=== PATIENT | female | born 1985 | race Caucasian/White ===

== ENCOUNTER 2019-06-16 16:16 | Emergency (ER) | payer OTHER ==
--- NOTE | 2019-06-16 16:53 | ED Physician Documentation ---
History of Present Illness - Stated complaint Stated Complaint: R SIDED CHEST WALL PX - Chief complaint Chief Complaint: Abd Pain - History obtained from History obtained from: Patient - History of Present Illness Timing: Yesterday Pain level max: 7 Pain level now: 5 - Additonal information Additional information: epigastric/RUQ abd pain. States history of gastric bypass in 09/16. [facility]. No vomiting. worse with movement. Nothing makes it better. Has chronic constipation. no diarrhea. no vomiting. Review of Systems Constitutional: denies: Fever, Chills Cardiac: denies: Chest pain / pressure Respiratory: denies: Cough GI: denies: Vomiting, Diarrhea, Hematemesis, Bloody / black stool Skin: denies: Rash Musculoskeletal: denies: Neck pain, Back pain Neurologic: denies: Headache PD PAST MEDICAL HISTORY - Past Medical History Past Medical History: Yes Psych: Depression, Anxiety - Past Surgical History Past Surgical History: Yes General: Gastric surgery - Present Medications Home Medications: Ambulatory Orders Medication Instructions Recorded Confirmed Esomeprazole Magnesium [Nexium] 40 mg PO DAILY #30 capsule. 06/16/19 - Allergies Allergies/Adverse Reactions: Allergies Allergy/AdvReac Type Severity Reaction Status Date / Time Sulfa (Sulfonamide Allergy Anaphylaxis Verified 06/16/19 16:25 Antibiotics) Penicillins AdvReac Anaphylaxis Verified 06/16/19 16:25 PD ED PE NORMAL - Vitals Vital signs reviewed: Yes - General General: Alert and oriented X 3, No acute distress - HEENT HEENT: Moist mucous membranes - Neck Neck: Supple, no meningeal sign - Cardiac Cardiac: RRR, Strong equal pulses - Respiratory Respiratory: No respiratory distress, Clear bilaterally - Abdomen Abdomen: Soft, Other (Mild tender to palpation epigastric and right upper quadrant. Negative Hernandez sign.) - Back Back: No CVA TTP, No spinal TTP - Derm Derm: Warm and dry, No rash - Extremities Extremities: No edema - Neuro Neuro: Alert and oriented X 3 Results - Vitals Vitals: Vital Signs - 24 hr 06/16/19 06/16/19 16:20 20:13 Temperature 36.8 C Heart Rate 76 61 Respiratory 18 16 Rate Blood Pressure 125/80 127/73 O2 Saturation 98 99 Oxygen O2 Source Room air - EKG (time done) 1641 Rate: Rate (enter#) (64) Rhythm: NSR [place]: Normal Intervals: Normal ID QRS: Normal Ischemia: Normal ST segments - Labs Labs: Laboratory Tests 06/16/19 06/16/19 06/16/19 16:54 16:54 16:54 WBC 8.7 RBC 4.63 Hgb 13.8 Hct 42.0 MCV 90.7 MCH 29.8 MCHC 32.9 RDW 14.4 Plt Count 244 MPV 10.2 Neut # (Auto) 5.4 Lymph # (Auto) 2.7 [place] # (Auto) 0.5 Eos # (Auto) 0.1 Baso # (Auto) 0.0 Absolute Nucleated RBC 0.00 Nucleated RBC % 0.0 Sodium 140 Potassium 3.4 L Chloride 102 Carbon Dioxide 25 Anion Gap 13.0 BUN 16 Creatinine 0.7 Estimated GFR (MDRD) 96 Glucose 80 Calcium 9.5 Total Bilirubin 0.9 AST 21 ALT 25 Alkaline Phosphatase 65 Troponin I < 0.04 Total Protein 7.7 Albumin 4.8 Globulin 2.9 Albumin/Globulin Ratio 1.7 Lipase 30 - Rads (name of study) RUQ US Radiology: Prelim report reviewed, EMP read contemporaneously, See rad report (Dilated common bile duct and gallbladder. Possible distal common bile duct obstruction or sphincter dysfunction. 2. No gallstones or ultrasound findings of acute cholecystitis. ) PD MEDICAL DECISION MAKING - ED course Complexity details: reviewed results, re-evaluated patient, considered differential, d/w patient ED course: 34-year-old female with epigastric pain of unclear etiology. Ultrasound shows a dilated common bile duct and gallbladder. Possible distal common bile duct obstruction or sphincter dysfunction. No acute laboratory abnormalities. No cholecystitis. We were going to perform a CT scan for possible internal hernia or other etiology of her pain. Patient changed her mind and would like to go home at this time. She states that she feels better. The GI cocktail helped somewhat. We will trial her on a PPI and see how she progresses. Tolerating p.o. without difficulty. Afebrile. Patient counseled regarding signs and symptoms for which I believe and urgent re-evaluation would be necessary. Patient with good understanding of and agreement to plan and is comfortable going home at this time This document was made in part using voice recognition software. While efforts are made to proofread this document, sound alike and grammatical errors may occur. Departure - Departure Disposition: 01 Home, Self Care Clinical Impression: Abdominal pain Qualifiers: Abdominal location: epigastric Qualified Code(s): R10.13 - Epigastric pain Condition: Stable Instructions: ED Abdominal Pain Unkn Cause Follow-Up: your,doctor in 3 days [Other] Prescriptions: Esomeprazole Magnesium [Nexium] 40 mg PO DAILY #30 capsule. Comments: The cause of your symptoms is unclear today. Follow-up with your doctor for further care. You do have a dilated common bile duct, this could be due to a stone, or sphincter dysfunction. Your laboratory tests are normal today. We did discuss a CT scan but you have declined this at this time. Return if you change your mind or if your symptoms worsen. Discharge Date/Time: 06/16/19 20:14
[2019-06-16 16:58] LABS: BASOPHILS % (AUTO) 0.5 %; EOSINOPHILS # (AUTO) 0.1 10^3/uL (0.0-0.7); EOSINOPHILS % (AUTO) 0.7 %; HGB - HEMOGLOBIN 13.8 g/dL (12.0-16.0); LYMPHOCYTES # (AUTO) 2.7 10^3/uL (1.5-3.5); LYMPHOCYTES % (AUTO) 30.5 %; MEAN CORPUSCULAR HEMOGLOBIN 29.8 pg (27.0-31.0); MEAN CORPUSCULAR HGB CONC 32.9 g/dL (32.0-36.0); MEAN CORPUSCULAR VOLUME 90.7 fL (81.0-99.0); MEAN PLATELET VOLUME 10.2 fL (7.9-10.8); MONOCYTES # (AUTO) 0.5 10^3/uL (0.0-1.0); NEUTROPHILS # (AUTO) 5.4 10^3/uL (1.5-6.6); PLT - PLATELET COUNT 244 10^3/uL (130-450); RED BLOOD COUNT 4.63 10^6/uL (4.20-5.40); RED CELL DISTRIBUTION WIDTH 14.4 % (12.0-15.0); WHITE BLOOD COUNT 8.7 x10^3/uL (4.8-10.8)
[2019-06-16 17:14] LABS: ALBUMIN 4.8 g/dL (3.2-5.5); ALBUMIN/GLOBULIN RATIO 1.7 (1.0-2.2); BILIRUBIN,TOTAL 0.9 mg/dL (0.2-1.0); CALCIUM 9.5 mg/dL (8.5-10.3); CREATININE 0.7 mg/dL (0.4-1.0); TOTAL PROTEIN 7.7 g/dL (6.7-8.2)
[2019-06-16] MEDS ORDERED: MAG HYDROX/AL HYDROX/SIMETH 30 ML UDC PO STA (17:20)
[2019-06-16] MEDS ORDERED: FAMOTIDINE 20 MG TABLET PO STA (17:20)
[2019-06-16] MEDS ORDERED: SUCRALFATE 1 GM/10 ML UDC PO STA (17:20)
[2019-06-16] MEDS ORDERED: LIDOCAINE VISCOUS 2% 15 ML UDC MM STA (17:20)
--- NOTE | 2019-06-16 17:34 | XRAY Report ---
Reason: chest pain Procedure Date: 06/16/2019 Accession Number: [id number] / [id number] Procedure: XR - Chest 1 View X-Ray CPT Code: 28125 FULL RESULT: EXAM: CHEST RADIOGRAPHY EXAM DATE: 06/16/2019 05:18 PM. CLINICAL HISTORY: Chest pain. COMPARISON: None. TECHNIQUE: 1 view. FINDINGS: Lungs/Pleura: No focal opacities evident. No pleural effusion. No pneumothorax. Mediastinum: Within exam limitations, the cardiomediastinal contour is normal. Other: Multiple surgical clips at level of GE junction in the upper abdomen. IMPRESSION: 1. Normal single view chest. 2. Postoperative changes in the region of cardia of stomach/hiatus. RADIA
--- NOTE | 2019-06-16 18:30 | Ultrasound Report ---
Reason: RUQ abd pain Procedure Date: 06/16/2019 Accession Number: [id number] / [id number] Procedure: US - Abdomen Limited CPT Code: FULL RESULT: EXAM: ABDOMEN ULTRASOUND LIMITED, RUQ EXAM DATE: 06/16/2019 06:07 PM. CLINICAL HISTORY: RUQ abd pain. COMPARISON: None. TECHNIQUE: Real-time scanning was performed with static images obtained. FINDINGS: Liver: Visualization of liver and other solid organs limited by body habitus. No focal mass identified in the liver on ultrasound. 17.2 cm. Main portal vein flow: Hepatopetal. Gallbladder: Gallbladder is distended. No stones. Gallbladder wall thickness is normal. Negative ultrasound Hernandez sign. Biliary System: CBD measures 6.8 mm. Common hepatic duct measures 3 mm in diameter Other: Right kidney measures 11.6 cm in length without hydronephrosis. There are calcifications in the upper pole of the right kidney. No right upper quadrant free fluid. IMPRESSION: 1. Dilated common bile duct and gallbladder. Possible distal common bile duct obstruction or sphincter dysfunction. 2. No gallstones or ultrasound findings of acute cholecystitis. RADIA
[2019-06-16] MEDS ORDERED: IOVERSOL 320 100 ML VIAL IVP ONE (19:54)
[2019-06-16 20:14] VITALS: BP 127/73
== END 2019-06-16 20:14 | disposition home or self-care (01) ==
LOC: ED 16:16
DX: R10.13 Epigastric pain (principal)
CPT/HCPCS: 36415; 71045; 76705; 80053; 83690; 84484; 85025; 93005; 99284; A9270

== ENCOUNTER 2019-10-20 14:27 | Emergency (ER) | payer OTHER ==
[2019-10-20 15:40] LABS: BASOPHILS % (AUTO) 0.2 %; EOSINOPHILS % (AUTO) 0.2 %; HGB - HEMOGLOBIN 15.1 g/dL (12.0-16.0); LYMPHOCYTES # (AUTO) 0.3 10^3/uL (1.5-3.5); MEAN CORPUSCULAR HEMOGLOBIN 30.2 pg (27.0-31.0); MEAN CORPUSCULAR HGB CONC 32.2 g/dL (32.0-36.0); MEAN CORPUSCULAR VOLUME 93.8 fL (81.0-99.0); MEAN PLATELET VOLUME 9.8 fL (7.9-10.8); MONOCYTES # (AUTO) 0.4 10^3/uL (0.0-1.0); MONOCYTES % (AUTO) 2.9 %; NEUTROPHILS # (AUTO) 11.6 10^3/uL (1.5-6.6); NEUTROPHILS % (AUTO) 94.3 %; PLT - PLATELET COUNT 240 10^3/uL (130-450); RED CELL DISTRIBUTION WIDTH 14.9 % (12.0-15.0); WHITE BLOOD COUNT 12.3 x10^3/uL (4.8-10.8)
[2019-10-20] MEDS ORDERED: ONDANSETRON ODT 4 MG TABLET TL STA (15:43)
[2019-10-20 15:54] LABS: ALBUMIN 4.8 g/dL (3.2-5.5); ALBUMIN/GLOBULIN RATIO 1.7 (1.0-2.2); BILIRUBIN,TOTAL 1.1 mg/dL (0.2-1.0); CREATININE 0.7 mg/dL (0.4-1.0); TOTAL PROTEIN 7.7 g/dL (6.7-8.2)
--- NOTE | 2019-10-20 16:14 | ED Physician Documentation ---
PD HPI ABD PAIN - Stated complaint Stated Complaint: ABD/CHEST PAIN, DRY HEAVING - GASTRIC BYPASS PT - Chief complaint Chief Complaint: Abd Pain - History obtained from History obtained from: Patient - History of Present Illness Timing - onset: Today Timing - duration: Hours Timing - details: Abrupt onset, Still present Quality: Cramping, Aching, Pain Location: Epigastric Improved by: No: Vomiting Worsened by: Eating. No: Moving, Breathing Associated symptoms: Nausea, Vomiting, Diarrhea. No: Near syncope / syncope Similar symptoms before: Has not had sx before Review of Systems Constitutional: reports: Myalgias. denies: Fever, Chills Nose: denies: Rhinorrhea / runny nose, Congestion Throat: denies: Sore throat Respiratory: denies: Cough GI: reports: Abdominal Pain (onset after vomiting), Nausea, Vomiting, Diarrhea Neurologic: reports: Generalized weakness. denies: Near syncope PD PAST MEDICAL HISTORY - Past Medical History Cardiovascular: None Respiratory: None Neuro: None GI: None Psych: Depression, Anxiety - Past Surgical History Past Surgical History: Yes General: Cholecystectomy, Gastric surgery - Present Medications Home Medications: Ambulatory Orders Medication Instructions Recorded Confirmed Esomeprazole Magnesium [Nexium] 40 mg PO DAILY #30 capsule. 06/16/19 Diphenoxylate/Atropine [Lomotil] 1 each PO QID PRN #12 tablet 10/20/19 Ondansetron Odt [Zofran] 4 mg TL Q6H PRN #10 tablet 10/20/19 Tramadol HCl 50 mg PO Q6H PRN #10 tablet 10/20/19 - Allergies Allergies/Adverse Reactions: Allergies Allergy/AdvReac Type Severity Reaction Status Date / Time Sulfa (Sulfonamide Allergy Anaphylaxis Verified 10/20/19 14:37 Antibiotics) Penicillins AdvReac Anaphylaxis Verified 10/20/19 14:37 PD ED PE NORMAL - Vitals Vital signs reviewed: Yes - General General: Alert and oriented X 3, No acute distress, Well developed/nourished - HEENT HEENT: Pharynx benign. No: Moist mucous membranes - Neck Neck: Supple, no meningeal sign, No adenopathy - Cardiac Cardiac: RRR, No murmur - Respiratory Respiratory: Clear bilaterally - Abdomen Abdomen: Normal bowel sounds, Soft, Non distended, No organomegaly, Other (mid tender without guarding epigastric area. No distension. ) - Back Back: No CVA TTP - Derm Derm: Normal color, Warm and dry - Extremities Extremities: No tenderness to palpate, Normal ROM s pain, No edema, No calf tenderness / cord - Neuro Neuro: Alert and oriented X 3, No motor deficit, Normal speech Results - Vitals Vitals: Vital Signs - 24 hr 10/20/19 10/20/19 14:37 19:05 Temperature 36.5 C Heart Rate 85 72 Respiratory 16 16 Rate Blood Pressure 114/69 107/66 O2 Saturation 100 Oxygen O2 Source Room air - Labs Labs: Laboratory Tests 10/20/19 10/20/19 15:37 15:37 WBC 12.3 H RBC 5.00 Hgb 15.1 Hct 46.9 MCV 93.8 MCH 30.2 MCHC 32.2 RDW 14.9 Plt Count 240 MPV 9.8 Neut # (Auto) 11.6 H Lymph # (Auto) 0.3 L [place] # (Auto) 0.4 Eos # (Auto) 0.0 Baso # (Auto) 0.0 Absolute Nucleated RBC 0.00 Nucleated RBC % 0.0 Sodium 139 Potassium 3.4 L Chloride 103 Carbon Dioxide 26 Anion Gap 10.0 BUN 14 Creatinine 0.7 Estimated GFR (MDRD) 96 Glucose 113 H Calcium 9.0 Total Bilirubin 1.1 H AST 24 ALT 32 Alkaline Phosphatase 61 Total Protein 7.7 Albumin 4.8 Globulin 2.9 Albumin/Globulin Ratio 1.7 Lipase 31 PD MEDICAL DECISION MAKING - ED course Complexity details: re-evaluated patient (better with IV fluids and meds. ), considered differential (seems likely viral GE or food related. With the diarrhea and minimal tenderness, unlikely to be obstruction or outlet blockage. ), d/w patient Departure - Departure Disposition: 01 Home, Self Care Clinical Impression: Nausea vomiting and diarrhea Condition: Stable Record reviewed to determine appropriate education?: Yes Instructions: ED Food Poison Or Gastroenteritis Follow-Up: ELISEO FREEMAN [Primary Care Provider] - Prescriptions: Diphenoxylate/Atropine [Lomotil] 1 each PO QID PRN #12 tablet PRN Reason: Diarrhea Ondansetron Odt [Zofran] 4 mg TL Q6H PRN #10 tablet PRN Reason: Nausea / Vomiting Tramadol HCl 50 mg PO Q6H PRN #10 tablet PRN Reason: Pain Comments: This sounds most likely to be either food related such as food poisoning or viral "stomach flu". As such I would anticipate it to only be a day or 2 of symptoms and then improve. Stay well-hydrated. [place] food initially and progress as tolerated. Ondansetron if needed for nausea and Lomotil if needed for diarrhea. Tylenol or tramadol if needed for pains or cramps. Recheck if not improved well over the next couple of days. Discharge Date/Time: 10/20/19 19:34
[2019-10-20] MEDS ORDERED: KETOROLAC 15 MG/ML VIAL IVP STA (16:32)
[2019-10-20] MEDS ORDERED: SODIUM CHLORIDE 0.9% 1,000 ML IV ONE ×2 (16:32)
[2019-10-20] MEDS ORDERED: MORPHINE 10 MG/ML VIAL IVP STA (16:32)
[2019-10-20] MEDS ORDERED: DIPHENOX/ATROPINE 2.5/0.025 MG TABLET PO STA (16:32)
[2019-10-20] MEDS ORDERED: HYDROmorphone 1 MG/ML CARPUJECT IVP STA (18:12)
[2019-10-20] MEDS ORDERED: ONDANSETRON 4 MG/2 ML VIAL IVP STA (19:04)
[2019-10-20] MEDS ORDERED: ONDANSETRON ODT 4 MG Prepack 2 TL PRN (19:04)
[2019-10-20 19:36] VITALS: BP 107/66
== END 2019-10-20 19:34 | disposition home or self-care (01) ==
LOC: ED 14:27
DX: R11.2 Nausea with vomiting, unspecified (principal); R19.7 Diarrhea, unspecified; R10.13 Epigastric pain; R53.1 Weakness; Z98.84 Bariatric surgery status
CPT/HCPCS: 36415; 80053; 83690; 85025; 96361; 96374; 96375; 99284; 99285; A9270; J1170; Q0162